=== PATIENT | female | born 1950 | race Caucasian/White ===

== ENCOUNTER → 2018-03-16 | Outpatient (CLI) | payer MEDICARE ==
[2018-03-16 15:14] LABS: HCT 46.4 % (34.0-46.0); HGB 15.1 gm/dL (11.4-16.0); MCH 31.9 pg (25.0-35.0); MCHC 32.6 g/dL (31.0-37.0); MCV 97.9 fL (80.0-100.0); Mean Platelet Volume 7.5; Platelet Count 393 k/uL (150-450); RBC 4.74 m/uL (3.80-5.40); WBC 11.2 k/uL (3.8-10.6)
[2018-03-16 15:26] LABS: ALT 36 U/L (9-52); AST 27 U/L (14-36)
== END | disposition home or self-care (01) ==
LOC: LABWHC1 14:47
PROVIDERS: ATTEND Otolaryngology
DX: R53.83 Other fatigue (principal)
CPT/HCPCS: 36415; 84450; 84460; 85027

== ENCOUNTER → 2018-11-10 | Outpatient (CLI) | payer MEDICARE | END | disposition home or self-care (01) | LOC: CPPFTMAIN 10:24 | PROVIDERS: ATTEND Family Medicine | DX: J44.9 Chronic obstructive pulmonary disease, unspecified (principal); Z88.2 Allergy status to sulfonamides | CPT/HCPCS: 94060; 94726; 94729 ==

== ENCOUNTER → 2018-11-20 | Outpatient (CLI) | payer MEDICARE ==
--- NOTE | 2018-11-23 00:05 | BD ---
EXAMINATION TYPE: Axial Bone Density DATE OF EXAM: 11/20/2018 COMPARISON: NONE CLINICAL HISTORY: 68-year-old female postmenopausal screening without HRT Height: 4 FT 11 IN Weight: 176 FRAX RISK QUESTIONS: History of Fracture in Adulthood: YES Secondary Osteoporosis: 3. Menopause before 45: YES RISK FACTORS HISTORY OF: Postmenopausal woman: AGE 44 Take estrogen and/or progesterone medications: DOESN'T REMEMBER HOW LONG SHE TOOK Poor Health: FAIR MEDICATIONS: Additional Medications: DAPSONE, MINOCYCLINE, ADVAIR, Additional History: PT HAS A CONDITION WHERE SHE GETS LESIONS IN HER MOUTH EXAM MEASUREMENTS: Bone mineral densitometry was performed using the [employer] System. Bone mineral density as measured about the Lumbar spine is: ----- L1-L4(G/cm2): 1.226 T Score Values are as follows: ----- L2: -0.1 ----- L3: 0.7 ----- L4: 0.4 ----- L1-L4: 0.4 LAST BONE DONE AT DRS OFFICE Bone mineral density about the R hip (g/cm2): 0.726 Bone mineral density about the L hip (g/cm2): 0.738 T Score values are as follows: -----R Neck: -2.2 -----L Neck: -2.2 -----R Total: -1.0 -----L Total: -0.8 LAST BONE DENSITY DONE AT DRS OFFICE IMPRESSION: Osteopenia (T Score between -2.5 and -1). There is slightly increased risk of fracture and the patient may be considered for treatment. Re-Screen 2-5 years. NOTE: T-SCORE=SD OF THE YOUNG ADULT MEAN.
--- NOTE | 2018-11-24 08:47 | MM ---
Reason for exam: screening (asymptomatic). Last mammogram was performed 9 years and 6 months ago. History: Patient is postmenopausal. Benign excisional biopsy of the left breast, 1998. Physical Findings: A clinical breast exam by your physician is recommended on an annual basis and results should be correlated with mammographic findings. MG 3D Screening Mammo W/Cad Bilateral CC and MLO view(s) were taken. Prior study comparison: May 22, 2009, bilateral digital screening mammogram. July 09, 2007, bilateral screening mammogram w/CAD. The breast tissue is almost entirely fat. There is no discrete abnormality. ASSESSMENT: Negative, BI-RAD 1 RECOMMENDATION: Routine screening mammogram of both breasts in 1 year.
== END | disposition home or self-care (01) ==
LOC: RADMAMWWP 14:36
PROVIDERS: ATTEND Family Medicine
DX: Z12.31 Encounter for screening mammogram for malignant neoplasm of breast (principal); M85.851 Other specified disorders of bone density and structure, right thigh; M85.852 Other specified disorders of bone density and structure, left thigh; Z78.0 Asymptomatic menopausal state
CPT/HCPCS: 77063; 77067; 77080

== ENCOUNTER → 2020-06-26 | Outpatient (CLI) | payer MEDICARE ==
--- NOTE | 2020-06-26 16:08 | US ---
EXAMINATION TYPE: US kidneys/renal and bladder DATE OF EXAM: 06/26/2020 COMPARISON: NONE CLINICAL HISTORY: 70-year-old female N18.31 STAGE 3 KIDNEY DISEASE, R94.4 ABN KIDNEY FUNCTION. CKD st age 2 TECHNIQUE: Multiple sonographic images of the kidneys and bladder are obtained. FINDINGS: EXAM MEASUREMENTS: Right Kidney: 8.9 x 5.7 x 4.3 cm Left Kidney: 8.7 x 5.1 x 4.6 cm Right Kidney: small in size, 0.4cm echogenic focus mid pole, 1.6 x 1.7 x 1.5cm cyst within the lower pole Left Kidney: small in size, 2.2 x 2.0 x 1.4cm cyst in the mid pole Bladder: wnl Bilateral Jets seen: yes IMPRESSION: Small kidneys suggest chronic medical renal disease. A few benign cysts measuring up to 2.2 cm and murillo spected 4 mm nonobstructive right mid pole renal calculus. No hydronephrosis.
== END | disposition home or self-care (01) ==
LOC: RADUSWWP 15:25
PROVIDERS: ATTEND Family Medicine
DX: N28.1 Cyst of kidney, acquired (principal); N18.31 Chronic kidney disease, stage 3a; Z88.2 Allergy status to sulfonamides
CPT/HCPCS: 76770

== ENCOUNTER → 2020-09-14 | Outpatient (CLI) | payer MEDICARE ==
[2020-09-14 15:04] LABS: Basophils # (A) 0.1 k/uL (0-0.2); Basophils % (A) 1 %; Eosinophils # (A) 0.2 k/uL (0-0.7); Eosinophils % (A) 2 %; HCT 42.3 % (34.0-46.0); HGB 13.8 gm/dL (11.4-16.0); Lymphocytes # (A) 4.6 k/uL (1.0-4.8); Lymphocytes % (A) 42 %; MCH 32.8 pg (25.0-35.0); MCHC 32.6 g/dL (31.0-37.0); MCV 100.5 fL (80.0-100.0); Mean Platelet Volume 7.7; Monocytes % (A) 9 %; Neutrophils # (A) 4.7 k/uL (1.3-7.7); Neutrophils % (A) 43 %; Platelet Count 446 k/uL (150-450); RBC 4.21 m/uL (3.80-5.40); RDW 12.8 % (11.5-15.5); WBC 11.1 k/uL (3.8-10.6)
[2020-09-14 15:07] LABS: Potassium 4.6 mmol/L (3.5-5.1)
== END | disposition home or self-care (01) ==
LOC: LABPAT 14:28
PROVIDERS: ATTEND Orthopaedic Surgery
DX: Z01.812 Encounter for preprocedural laboratory examination (principal); G56.02 Carpal tunnel syndrome, left upper limb
CPT/HCPCS: 36415; 80051; 85025

== ENCOUNTER 2020-09-27 10:51 | Day surgery (SDC) | payer MEDICARE ==
[2020-09-22 14:39] VITALS: BMI 35.7
--- NOTE | 2020-09-26 15:20 | HP ---
HISTORY AND PHYSICAL Surgery is scheduled for 09/27/2020 Vianey Yeboah is a 70-year-old patient seen with symptomatic left carpal tunnel syndrome. We discussed options. She elected to proceed with decompression left median nerve. Consent was obtained. PAST MEDICAL HISTORY: Asthma, COPD. PAST SURGICAL HISTORY: Splenectomy. DAILY MEDICATIONS: None. ALLERGIES: SULFA. SOCIAL HISTORY: She denies tobacco use. PHYSICAL EVALUATION OF THE LEFT HAND: She has a positive carpal compression, positive carpal Tinel's causing numbness and tingling throughout the median nerve distribution. There is some decreased sensation throughout the median nerve distribution. There is a good radial pulse present. No tenderness along the A1 hiram areas. Radiographs of the hand and wrist reveal some osteoarthritic changes. IMPRESSION: Left carpal tunnel syndrome. PLAN: Decompression left median nerve. MMODL / IJN: [id number] /
[~2020-09-27 10:51] MED LIST: DEXAMETHASONE SOD PHOSPHATE 4 MG/ML 1 ML VIAL IV ONE; LACTATED RINGERS 1,000 ML IV SCH; LIDOCAINE 1% (10MG/ML) FOR IV START INTRADERMA PRN; ONDANSETRON 4 MG/2 ML VIAL IVP ONE
[2020-09-27 11:12] VITALS: TEMP 97.9
[2020-09-27] MEDS ORDERED: PROPOFOL 10 MG/ML 20 ML VIAL IV ONE (11:57)
[2020-09-27] MEDS ORDERED: MIDAZOLAM 2 MG/2 ML VIAL ONE (11:57)
[2020-09-27] MEDS ORDERED: BUPIVACAINE (PF) 0.25% 30 ML VIAL SQ ONE (12:12)
--- NOTE | 2020-09-27 12:37 | P.OP ---
Date of Procedure: 09/27/20 Preoperative Diagnosis: Left carpal tunnel syndrome Postoperative Diagnosis: Left carpal tunnel syndrome Procedure(s) Performed: Decompression left median nerve Anesthesia: MAC, local Surgeon: Jimbo Reed Estimated Blood Loss (ml): 0 Pathology: none sent Condition: stable Disposition: PACU Indications for Procedure: 70-year-old patient seen with symptomatic left carpal tunnel syndrome. After treatment options were discussed, she elected to proceed with decompression left median nerve. Operative Findings: See description of procedure Description of Procedure: Patient was taken to the operative suite. Patient received preoperative IV antibiotics. The patient underwent IV sedation by the department of anesthesia. A well-padded tourniquet placed proximal left upper extremity. The left upper extremity was prepped and draped in the normal sterile orthopedic fashion. The extremity was elevated and tourniquet was insufflated to 250. I infiltrated the proposed incision site with quarter percent plain Marcain totaling 10 mL. Once sufficient local analgesia was noted I made an incision beginning at the distal volar wrist crease extending distally approximately 3 cm in line with the fourth metacarpal sharply through skin. I dissected down through the palmar fascia to the transverse carpal ligament. I now made a small incision through the transverse carpal ligament. I completed the release of transcarpal ligament proximally and distally with blunt Metzenbaums. There was good complete release of the transverse carpal ligament and good decompression of the nerve. The wound was irrigated. There was good hemostasis. The skin margins were. With nylon suture. Sterile dressings were applied. The tourniquet was released with immediate capillary refill of all digits noted. The patient was awakened and transferred to recovery in stable condition.
[2020-09-27 12:41] VITALS: RESP 16
[2020-09-27 12:55] VITALS: BP 166/84; PULSE 75
== END 2020-09-27 13:06 | disposition home or self-care (01) ==
LOC: OR 10:51
PROVIDERS: ATTEND Orthopaedic Surgery
DX: G56.02 Carpal tunnel syndrome, left upper limb (principal); J44.9 Chronic obstructive pulmonary disease, unspecified; K21.9 Gastro-esophageal reflux disease without esophagitis; L12.8 Other pemphigoid; Z88.2 Allergy status to sulfonamides; Z90.81 Acquired absence of spleen; Z87.891 Personal history of nicotine dependence; Z79.899 Other long term (current) drug therapy
CPT/HCPCS: 64721; J2250; J1100; J0690; J2405; J2704

== ENCOUNTER → 2021-06-28 | Outpatient (CLI) | payer MEDICARE ==
--- NOTE | 2021-06-28 17:04 | BD ---
EXAMINATION TYPE: Axial Bone Density DATE OF EXAM: 06/28/2021 COMPARISON: 11/20/2018 CLINICAL HISTORY: postmenopausal screening Height: 59 Weight: 177.6 FRAX RISK QUESTIONS: Alcohol (3 or more units per day): no Family History (Parent hip fracture): no Glucocorticoids (More than 3mos): no (Ex: prednisone, prednisolone, methylprednisolone, dexamethasone, and hydrocortisone). History of Fracture in Adulthood: yes Secondary Osteoporosis: 1. Type 1 Diabetes: no 2. Hyperthyroidism: no 3. Menopause before 45: no 4. Malnutrition: no 5. Chronic liver disease: no Rheumatoid Arthritis: no Current Tobacco Use: no RISK FACTORS HISTORY OF: Surgery to Spine/Hip(right/left)/Wrist (right/left): no Family History of Osteoporosis: no Active: no Diet low in dairy products/other sources of calcium: yes Postmenopausal woman: yes Lost more than 2 inches in height since high school: no MEDICATIONS: inhalers Additional History: EXAM MEASUREMENTS: Bone mineral densitometry was performed using the [employer] System. Bone mineral density as measured about the Lumbar spine is: ----- L1-L4(G/cm2): 1.293 T Score Values are as follows: ----- L2: -0.1 ----- L3: 0.5 ----- L4: 2.8 ----- L1-L4: 0.9 Bone mineral density has: increased 8.0% since study of: 11.20.2018 Bone mineral density about the R hip (g/cm2): 0.747 Bone mineral density about the L hip (g/cm2): 0.695 T Score values are as follows: -----R Neck: -2.1 -----L Neck: -2.5 -----R Total: -1.0 -----L Total: -1.1 Bone mineral density has: decreased -2.2 % since study of: 11.20.2018 IMPRESSION: Osteoporosis (T Score less than -2.5). There is increased fracture risk and therapy is usually indicated based on age. Re-Screen 1-2 years. NOTE: T-SCORE=SD OF THE YOUNG ADULT MEAN.
[2021-06-28 20:05] LABS: Creatinine 24 Hour,Urine 1046.4 mg/24hr (800.0-1800.0); Total Protein 24 Hour,Urine 128 mg/24hr (42.0-225.0); Total Volume 24 Hour,Urine 1600 mls (250-2400)
--- NOTE | 2021-07-02 10:55 | MM ---
Reason for exam: screening (asymptomatic). Last mammogram was performed 2 years and 7 months ago. History: Patient is postmenopausal. Benign excisional biopsy of the left breast, 1998. Physical Findings: A clinical breast exam by your physician is recommended on an annual basis and results should be correlated with mammographic findings. MG 3D Screening Mammo W/Cad Bilateral CC and MLO view(s) were taken. Prior study comparison: November 20, 2018, bilateral MG 3d screening mammo w/cad. There are scattered fibroglandular densities. No significant changes when compared with prior studies. ASSESSMENT: Benign, BI-RAD 2 RECOMMENDATION: Routine screening mammogram of both breasts in 1 year.
== END | disposition home or self-care (01) ==
LOC: RADBDWWP 13:23
PROVIDERS: ATTEND Family Medicine
DX: Z12.31 Encounter for screening mammogram for malignant neoplasm of breast (principal); Z13.820 Encounter for screening for osteoporosis; M81.0 Age-related osteoporosis without current pathological fracture; Z78.0 Asymptomatic menopausal state
CPT/HCPCS: 77063; 77067; 77080; 81050; 82570; 84156

== ENCOUNTER → 2021-07-30 | Outpatient (CLI) | payer MEDICARE ==
--- NOTE | 2021-07-30 13:53 | XR ---
Lumbosacral spine HISTORY: G57.91 NEUROPATHY OF RT LOWER EXT 5 views of the lumbosacral spine, correlation with prior exam 11/29/2013 There is multilevel spondylosis. Lumbar vertebral bodies show preserved height, bone mineralization. There is no evidence spondylolysis. Loss of disc height is present at the intervertebral levels, Silvino phenomenon at L3-4, L4-5. Minimal retrolisthesis grade 1 L2-3. Sclerosis is present in the posterior elements of the lower lumbar spine. Atherosclerotic calcifications are present in the aortoiliac dis tribution. There is a mild spinal curvature. IMPRESSION: Degenerative disc disease and facet arthropathy.
--- NOTE | 2021-07-30 22:58 | US ---
EXAMINATION TYPE: US abdomen complete DATE OF EXAM: 07/30/2021 COMPARISON: 06/26/20 CLINICAL HISTORY: 71-year-old female N18.31 STAGE 3 CHR KIDNEY DISEASE. EXAM MEASUREMENTS: Liver Length: 14.2 cm Gallbladder Wall: 0.3 cm CBD: 0.3 cm Spleen: 8.1 cm Right Kidney: 8.5x5.5x5.7 cm Left Kidney: 8.3x4.8x5.1 cm Pancreas: Only small portion of the pancreatic neck is seen. Remainder is obscured by bowel gas shad owing. Liver: Very echogenic and attenuating with some focal fatty sparing adjacent to the gallbladder fossa . Gallbladder: wnl Evidence for sonographic Castano's sign: No CBD: wnl Spleen: wnl Right Kidney: 3 mm echogenic focus at the mid pole. Inf cyst 1.7x1.7x1.8cm. No hydronephrosis. Left Kidney: Hypoechoic area measuring 2.4x1.9x2.5cm at the upper pole. Internal echoes are presen t. No hydronephrosis. Upper IVC: wnl Abd Aorta: atherosclerotic IMPRESSION: 1. Moderate to severe hepatic steatosis. 2. No gallstones or biliary ductal dilatation. 3. No hydronephrosis. 4. A 2.5 cm hypoechoic round lesion upper pole left kidney. This could be a cyst with internal echoes representing artifact or internal debris. A solid mass is difficult to exclude at this time. A cyst is favored. Six-month follow-up ultrasound recommended to reassess. 5. Nonobstructive 3 mm right renal calculus.
== END | disposition home or self-care (01) ==
LOC: RADUSWWP 12:16
PROVIDERS: ATTEND Family Medicine
DX: M51.36 Other intervertebral disc degeneration, lumbar region (principal); M47.816 Spondylosis without myelopathy or radiculopathy, lumbar region; K76.0 Fatty (change of) liver, not elsewhere classified; N20.0 Calculus of kidney; N28.9 Disorder of kidney and ureter, unspecified; N18.31 Chronic kidney disease, stage 3a; G57.91 Unspecified mononeuropathy of right lower limb
CPT/HCPCS: 72110; 76700

== ENCOUNTER → 2022-08-07 | Outpatient (CLI) | payer MEDICARE ==
--- NOTE | 2022-08-07 14:41 | CTL ---
EXAMINATION TYPE: CT Low Dose Lung DATE OF EXAM ORDERED: 08/07/2022 HISTORY: 72-year-old female Z87.891 personal hx nicotine dependence, Z13.21. Former smoker with 53 pa ck-year history. Lung cancer screening. CT DLP: 123.[address] CTDI: 3.6 mGy Automated exposure control for dose reduction was used. SCREENING VISIT: Baseline COMPARISON: None TECHNIQUE: Low dose computed tomography scan was performed through the chest with coronal and sagitta l reconstructions. CT DIAGNOSTIC QUALITY: Satisfactory FINDINGS: Heart normal size without pericardial effusion. Three-vessel coronary artery calcifications are prese nt in remarkable for coronary artery disease. Aorta normal caliber with conventional arch vessel branching anatomy. Minimal atherosclerotic arch ca lcifications. There are calcified mediastinal, hilar, and subcarinal lymph nodes compatible prior granulomatous dis ease. Moderate centrilobular emphysema especially in the upper lungs. A few scattered calcified granulomas are noted Some strandy atelectasis at the inferior lingula. No consolidation or pleural effusion. No suspicious pulmonary nodule or mass. Small hiatal hernia. Small calcified granulomas at the right hepatic dome. Spleen not well seen possi librado surgically absent versus autosplenectomy. Suspected tiny partially visualized gallstone. Bones: Moderate degenerative disc disease upper to mid thoracic spine. IMPRESSION: 1. LungRADS 1, negative. No suspicious pulmonary nodules. 2. COPD with moderate emphysema and evidence of prior granulomatous disease. 3. Small hiatal hernia. Suspect underlying cholelithiasis. CT LUNG RAD AND CT CHEST RECOMMENDATION: Lung-Rad 1 Negative: Continue annual screening with LDCT in 12 months. S Modifier (other clinically significant findings): None
--- NOTE | 2022-08-08 18:34 | MM ---
Reason for Exam: Screening (asymptomatic). Last mammogram was performed 1 year(s) and 1 month(s) ago. Patient History: Menarche at age 11. First Full-Term at age 19. Postmenopausal. Estrogen, from age 39 until age 49. 1998, Benign Excisional Biopsy on the left side. Risk Values: Angela 5 year model risk: 1.9%. NCI Lifetime model risk: 4.6%. Prior Study Comparison: 05/22/2009 Bilateral Screening Mammogram, [facility]. 11/20/2018 Bilateral Screening Mammogram, [facility]. 06/28/2021 Bilateral Screening Mammogram, [facility]. Tissue Density: The breast tissue is almost entirely fat. Findings: Analyzed By CAD. The minimally increasing vascular calcifications medially on the right. Low axillary tail lymph node on the left. No significant change from prior exams. Overall Assessment: Benign, BI-RAD 2 Management: Screening Mammogram of both breasts in 1 year. 1. Patient should continue monthly self breast exams. 2. A clinical breast exam by your physician is recommended on an annual basis. 3. This exam should not preclude additional follow-up of suspicious palpable abnormalities. Electronically signed and approved by: Esthela Diego M.D. Radiologist
== END | disposition home or self-care (01) ==
LOC: RADCTMAIN 12:51
PROVIDERS: ATTEND Family Medicine
DX: Z12.31 Encounter for screening mammogram for malignant neoplasm of breast (principal); Z12.2 Encounter for screening for malignant neoplasm of respiratory organs; J43.2 Centrilobular emphysema; K44.9 Diaphragmatic hernia without obstruction or gangrene; Z87.891 Personal history of nicotine dependence; Z78.0 Asymptomatic menopausal state; Z98.890 Other specified postprocedural states
CPT/HCPCS: 71271; 77063; 77067

== ENCOUNTER 2023-08-06 07:21 | Day surgery (SDC) | payer MEDICARE ==
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
[~2023-08-06 07:21] MED LIST changes: -DEXAMETHASONE SOD PHOSPHATE 4 MG/ML 1 ML VIAL IV ONE; +HYDROmorphone 0.5 MG/0.5 ML SYRINGE IVP PRN; +Pre Op ABX Message 1 EACH MISC MISCELLANE ONE
[2023-08-06 08:06] VITALS: TEMP 97
[2023-08-06] MEDS ORDERED: fentaNYL (PF) 50 MCG/ML 2 ML AMP ONE (08:32)
[2023-08-06] MEDS ORDERED: MIDAZOLAM 2 MG/2 ML VIAL ONE (08:32)
[2023-08-06] MEDS ORDERED: PROPOFOL 10 MG/ML 20 ML VIAL IV ONE (08:32)
[2023-08-06] MEDS ORDERED: BUPIVACAINE (PF) 0.5% 30 ML VIAL SQ ONE ×2 (08:34→08:40)
[2023-08-06] MEDS ORDERED: LIDOCAINE 2% INJ 20 MG/ML SQ ONE ×2 (08:35→08:40)
--- NOTE | 2023-08-06 08:52 | P.OP ---
Date of Procedure: 08/06/23 Preoperative Diagnosis: Right carpal tunnel syndrome Postoperative Diagnosis: Right carpal tunnel syndrome Procedure(s) Performed: Right endoscopic carpal tunnel release Anesthesia: MAC Surgeon: Bob Gonzalez Estimated Blood Loss (ml): 0 Pathology: none sent Condition: stable Disposition: PACU Description of Procedure: This is a 73 year old female who presents today for a right endoscopic carpal tunnel release after having failed conservative treatment in the past. Risks and benefits of surgery were discussed with the patient including bleeding, damage to surrounding tissue, infection, need to convert to open procedure, need for further surgery as well as risks of anesthesia including pulmonary embolism and even and the patient wished to proceed with surgical intervention. The patients was seen in the pre-operative area by myself. Consent and H&P were completed and updated. The correct extremity was marked in the pre-operative area by myself and all other questions were answered. Operative Narrative: The patient was brought to the operating room by the department of anesthesia. They remained on the portable stretcher and a rolling hand table was brought to the side of the operative extremity. Pre-operative time out was performed indicating the correct patient, procedure and laterality. All in the room agreed. The patient was then drifted off to sleep by the department of anesthesia. MAC anesthesia was utilized and a 50:50 mixture of 1% Lidocaine and 0.5% bupivacaine was injected into the subcutaneous tissues of the palmar skin, 8ccs total. A nonsterile tourniquet was then applied to the operative extremity and the right upper extremity was then prepped and draped in normal sterile fashion. The operative extremity was the exsanguinated with an esmarch bandage and the tourniquet was inflated to 250mmHg. 15 blade scalpel was utilized to make a transverse incision on the palmar skin just ulnar to the palmaris longus tendon at the level of the distal wrist crease. Ragnell retractor was then placed radially and blunt dissection was performed to reveal the distal forearm fascia. This was lifted with fine Ra pick ups and Littler tenotomy scissors were then used to open the forearm fascia transversely and a double skin hook was then placed. Hamate finder was placed into the carpal tunnel and then sequential sized dilators were inserted followed by the synovial elevator to separate the flexor tenosynovium from the undersurface of the transverse carpal ligament and a washboard texture was felt. The [employer] endoscopic carpal tunnel release system gun was the then inserted into the carpal tunnel hugging the deep portion of the transverse carpal ligament in line with the base of the ring finger. Transverse fibers of the ligament were directly visualized. Pressure was applied on the palm to reveal t he distal extent of the transverse carpal ligament. The blade was then deployed and the distal half of the transverse carpal ligament was released. The scope was then brought distal again and remaining transverse fibers were incised with the blade. The proximal half of the transverse carpal ligament was then divided and again the scope was advanced distal and remaining transverse fibers were incised with the blade. The radial and ulnar leaflets were directly visualized and mobile consistent with complete release. Tenotomy scissors were then utilized to release the remaining distal forearm fascia under direct visualization taking care to preserve the palmar cutaneous branch of the median nerve. Skin closure was performed with interrupted 4-0 Monocryl suture followed by steri strips. Sterile dressing was applied consisting 4x4s, Webril, and an alicia bandage. Tourniquet was let down and the hand immediately was well perfused. The patient was then woken by the department of anesthesia and transferred to PACU in stable condition. Bob Gonzalez D.O. Orthopedic Hand/Upper Extremity Surgeon
[2023-08-06 09:36] VITALS: BP 158/88; PULSE 72; RESP 16
== END 2023-08-06 09:40 | disposition home or self-care (01) ==
LOC: OR 07:21
PROVIDERS: ATTEND Orthopaedic Surgery Hand Surgery
DX: G56.01 Carpal tunnel syndrome, right upper limb (principal); J44.9 Chronic obstructive pulmonary disease, unspecified; H57.9 Unspecified disorder of eye and adnexa; K21.9 Gastro-esophageal reflux disease without esophagitis; E78.5 Hyperlipidemia, unspecified; M19.90 Unspecified osteoarthritis, unspecified site; N28.9 Disorder of kidney and ureter, unspecified; Z98.42 Cataract extraction status, left eye; Z98.41 Cataract extraction status, right eye; Z98.890 Other specified postprocedural states; Z87.891 Personal history of nicotine dependence; Z79.51 Long term (current) use of inhaled steroids; Z79.82 Long term (current) use of aspirin; Z79.899 Other long term (current) drug therapy; Z88.2 Allergy status to sulfonamides
CPT/HCPCS: 29848; J2001; J2250; J2405; J3010; J2704; J0665